=== PATIENT | male | born 1955 | race Caucasian/White ===

== ENCOUNTER 2018-06-12 12:11 | Emergency (ER) | payer MEDICAID ==
[~2018-06-12] VITALS: Ht 193 cm; Wt 102.3 kg
[2018-06-12 12:14] VITALS: BP 150/85; Ht 193 cm; Wt 102.3 kg
[2018-06-12] MEDS ORDERED: COZAAR25 MG PO (12:17)
[2018-06-12] MEDS ORDERED: NEXIUM40 MG (12:17)
[2018-06-12 13:11] LABS: HEMATOCRIT 42.6 % (42.0-54.0); LYMPHOCYTES 44.2 % (15-50); MCH 31.8 pg (26.0-34.0); MCHC 35.2 g/dL (31.0-37.0); MCV 90.4 fL (80.0-100.0); MEAN PLATELET VOLUME 8.9 fL (7.4-10.4); NEUTROPHILS 46.7 % (40-80); PLATELET COUNT 172 10x3/uL (130-400); RBC 4.71 10x6/uL (4.20-6.10); RDW 12.3 % (11.5-14.5); WBC 4.1 10x3/uL (4.8-10.8)
[2018-06-12 13:19] LABS: ALBUMIN 3.6 g/dL (3.4-5.0); ALKALINE PHOSPHATASE 55 U/L (46-116); ALT (SGPT) 33 U/L (10-68); BILIRUBIN - TOTAL 0.52 mg/dL (0.2-1.3); CALC OSMOLALITY 279 mosm/kg (275-300); CALCIUM 8.9 mg/dL (8.5-10.1); CARBON DIOXIDE 28.3 mmol/L (21.0-32.0); CHLORIDE - SERUM 104 mmol/L (98-107); GLUCOSE 101 mg/dL (74-106); POTASSIUM - SERUM 4.6 mmol/L (3.5-5.1); PROTEIN - SERUM 6.9 g/dL (6.4-8.2); SODIUM 139 mmol/L (136-145); UREA NITROGEN 18 mg/dL (7-18); eGFR NON AFRICAN AMERICAN 80 mL/min (90-120)
[2018-06-12] MEDS ORDERED: IBUPROFEN800 MG PO (14:31)
[2018-06-12] MEDS ORDERED: CYCLOBENZAPRINE10 MG PO (14:31)
[2018-06-12] MEDS ORDERED: ACETAMINOPHEN500 M1 PO (14:31)
== END 2018-06-18 09:00 | disposition home or self-care (01) ==
LOC: D.ER 12:11
PROVIDERS: Family Medicine
DX: R51 Headache (principal); V43.52XA Car driver injured in collision with other type car in traffic accident, initial encounter; Y93.89 Activity, other specified; Y92.410 Unspecified street and highway as the place of occurrence of the external cause; I10 Essential (primary) hypertension